=== PATIENT | female | born 1960 | race Caucasian/White ===

== ENCOUNTER → 2017-12-06 | Outpatient (CLI) | payer OTHER ==
--- NOTE | 2017-12-06 12:58 | FL ---
EXAMINATION TYPE: FL barium swallow DATE OF EXAM: 12/06/2017 COMPARISON: NONE HISTORY: Food sticking with solids TECHNIQUE: A double contrast UGI study is performed. FINDINGS: Contrast passes through the esophagus to the stomach without significant hesitancy. There i s during the initial phase of the examination some debris within the distal esophagus which appears t o clear. The gastroesophageal junction opens to normal caliber. There is some mild hesitancy of contr ast passing through the gastroesophageal junction. There is complete stripping of the esophageal bolu s in the horizontal drinking position although some slight hesitancy is again noted at the gastroesop hageal junction Overhead radiographs were obtained which are unremarkable. Images: 33 Fluoroscopy time: 1 minute 33 seconds IMPRESSIONS: 1. There appear to be some debris within the distal esophagus at the initial stage of the examination . This however clears with liquid. 2. Mild hesitancy at the gastroesophageal junction with passage of barium. 3. No suspicious abnormalities identified.
== END | disposition home or self-care (01) ==
LOC: RADFLMAIN 10:43
PROVIDERS: ATTEND Internal Medicine Gastroenterology
DX: R09.89 Other specified symptoms and signs involving the circulatory and respiratory systems (principal)
CPT/HCPCS: 74220

== ENCOUNTER 2023-09-26 13:41 | Observation (INO) | payer MEDICARE, OTHER ==
[2023-09-26] MEDS ORDERED: NITROGLYCERIN SL TABS 0.4 MG TAB SUBLINGUAL PRN ×2 (14:11→15:30)
[2023-09-26] MEDS ORDERED: NALOXONE 0.4 MG/ML 1 ML VIAL IVP PRN (14:11)
[2023-09-26] MEDS ORDERED: ACETAMINOPHEN TAB 325 MG TAB PO PRN (14:11)
[2023-09-26 14:18] VITALS: RESP 18
[2023-09-26] MEDS: HEPARIN SODIUM,PORCINE 5,000 UNIT/ML 1 ML VIAL SQ SCH (15:14)
[2023-09-26] MEDS ORDERED: IPRATROPIUM-ALBUTEROL 3 ML NEB INHALATION PRN (15:27)
--- NOTE | 2023-09-26 15:27 | XR ---
EXAMINATION TYPE: XR chest 1V portable DATE OF EXAM: 09/26/2023 Comparison: None Clinical History: 63-year-old female with chest pain Findings: Diminished lung volumes with elevated hemidiaphragms partially obscuring the heart margins. Prominent streaky areas of density at the lung bases. Upper lungs appear clear. No sizable pleural effusion. Impression: Limited by prominent hypoventilatory changes and strandy bibasilar atelectasis.
--- NOTE | 2023-09-26 15:30 | ED ---
General Adult HPI - General Chief complaint: Chest Pain Stated complaint: Chest Pain, COPD Time Seen by Provider: 09/26/23 13:41 Source: patient, RN notes reviewed, old records reviewed Mode of arrival: EMS Limitations: no limitations - History of Present Illness Initial comments: This is a 63-year-old female who is transferred to us from [facility] I did speak with the Taryn doctor prior to transfer. Patient came in last evening for difficulty breathing and chest pain initial troponin was normal health EKG showed some ST segment depression and according to their mortgage loan closer he wanted the patient be transferred to our facility for a stress test. Patient currently was continuing to have some chest heaviness and some shortness of long ath. Patient denies any fever chills or cough. Patient with any abdominal pain palpitations nausea vomiting diarrhea. - Related Data Allergies Allergy/AdvReac Type Severity Reaction Status Date / Time atorvastatin [From Lipitor] Allergy Unknown Verified 09/26/23 14:19 cephalexin [From Keflex] Allergy Unknown Verified 09/26/23 13:51 erythromycin base Allergy Unknown Verified 09/26/23 13:51 potassium Allergy Unknown Verified 09/26/23 13:51 vitamin A Allergy Unknown Verified 09/26/23 13:51 Review of Systems ROS Statement: Those systems with pertinent positive or pertinent negative responses have been documented in the HPI. ROS Other: All systems not noted in ROS Statement are negative. Past Medical History Past Medical History: Asthma, COPD Additional Past Medical History / Comment(s): vertigo, sleep apnea Past Surgical History: Hernia Repair Past Psychological History: Depression Smoking Status: Former smoker Past Alcohol Use History: None Reported Past Drug Use History: None Reported General Exam - General Exam Comments Initial Comments: GENERAL: Patient is well-developed and well-nourished. Patient is nontoxic and well- hydrated and is in mild distress. ENT: Neck is soft and supple. No significant lymphadenopathy is noted. Oropharynx is clear. Moist mucous membranes. Neck has full range of motion without eliciting any pain. EYES: The sclera were anicteric and conjunctiva were pink and moist. Extraocular movements were intact and pupils were equal round and reactive to light. Eyelids were unremarkable. PULMONARY: Unlabored respirations. Good breath sounds bilaterally. No audible rales rhonchi or wheezing was noted. CARDIOVASCULAR: Patient is a regular rate at about 100 beats a minute. ABDOMEN: Soft and nontender with normal bowel sounds. SKIN: Skin is clear with no lesions or rashes and otherwise unremarkable. NEUROLOGIC: Patient is alert and oriented x3. Cranial nerves II through XII are grossly intact. Motor and sensory are also intact. Normal speech, volume and content. Symmetrical smile. MUSCULOSKELETAL: Normal extremities with adequate strength and full range of motion. LYMPHATICS: No significant lymphadenopathy is noted PSYCHIATRIC: Normal psychiatric evaluation. Limitations: no limitations Course Vital Signs 09/26/23 09/26/23 14:14 15:16 Temperature 99.9 F H Pulse Rate 109 H 106 H Respiratory 18 18 Rate Blood Pressure 138/82 130/82 O2 Sat by Pulse 96 97 Oximetry Medical Decision Making - Medical Decision Making EKG is interpreted by myself. EKG shows a sinus tachycardia at 104 bpm NH interval 602 QT interval 374 QTC is 435. Patient's EKG shows ST segment depression in leads V2 through V6. Was pt. sent in by a medical professional or institution (, PA, SQUEEGEE TENDER, urgent care, hospital, or [place] health [place] facility...) When possible be specific @ -[facility] transfer the patient to us Did you speak to anyone other than the patient for history (EMS, parent, family, police, friend...)? What history was obtained from this source @ -I spoke with the physician at [facility] prior to transfer Did you review nursing and triage notes (agree or disagree)? Why? @ -I reviewed and agree with nursing and triage notes Were old charts reviewed (outside hosp., previous admission, EMS record, old EKG, old radiological studies, urgent care reports/EKG's, [place] health care facility records)? Report findings @ -I reviewed the old chart and old lab work that the patient was sent with Differential Diagnosis (chest pain, altered mental status, abdominal pain women, abdominal pain men, vaginal bleeding, weakness, fever, dyspnea, syncope, headache, dizziness, GI bleed, back pain, seizure, CVA, palpatations, mental health, musculoskeletal)? @ -Differential Chest Pain: Stable Angina, Unstable Angina, STEMI, NSTEMI Aortic Dissection, Pneumothorax, Musculoskeletal, Esophageal Spasm GERD, Cholecystitis, Pancreatitis, Zoster, this is not meant to be an all-inclusive list. EKG interpreted by me (3pts min.). @ -As above X-rays interpreted by me (1pt min.). @ -None done CT interpreted by me (1pt min.). @ -None done U/S interpreted by me (1pt. min.). @ -None done What testing was considered but not performed or refused? (CT, X-rays, U/S, labs)? Why? @ -None What meds were considered but not given or refused? Why? @ -None Did you discuss the management of the patient with other professionals (professionals i.e. DrNeal, PA, SQUEEGEE TENDER, lab, RT, psych nurse, oncology social work, master control supervisor, teacher, parole hearing officer, case assembler)? Give summary @ -I spoke with Dr. Lilly he agreed to admit the patient to the patient wrote admitting orders Was smoking cessation discussed for >3mins.? @ -No Was critical care preformed (if so, how long)? @ -No Were there social determinants of health that impacted care today? How? (Homelessness, low income, unemployed, alcoholism, drug addiction, transportation, low edu. Level, literacy, decrease access to med. care, skilled nursing, rehab)? @ -No Was there de-escalation of care discussed even if they declined (Discuss DNR or withdrawal of care, Hospice)? DNR status @ -No What co-morbidities impacted this encounter? (DM, HTN, Smoking, COPD, CAD, Cancer, CVA, ARF, Chemo, Hep., AIDS, mental health diagnosis, sleep apnea, morbid obesity)? @ -None Was patient admitted / discharged? Hospital course, mention meds given and route, prescriptions, significant lab abnormalities, going to OR and other pertinent info. @ -Patient has slight abnormality and EKG was some ST segment depression however have no old EKG to compare to. Patient's troponins were negative. I spoke with Dr. Lilly he agreed to admit the patient admitted the patient I wrote admitting orders I consulted cardiology Undiagnosed new problem with uncertain prognosis? @ -No Drug Therapy requiring intensive monitoring for toxicity (Heparin, Nitro, Insulin, Cardizem)? @ -No Were any procedures done? @ -No Diagnosis/symptom? @ -Chest pain Acute, or Chronic, or Acute on Chronic? @ -Acute Uncomplicated (without systemic symptoms) or Complicated (systemic symptoms)? @ -Complicated Side effects of treatment? @ -No Exacerbation, Progression, or Severe Exacerbation? @ -No Poses a threat to life or bodily function? How? (Chest pain, USA, SC, pneumonia, PE, COPD, DKA, ARF, appy, cholecystitis, CVA, Diverticulitis, Homicidal, Suicidal, threat to staff... and all critical care pts) @ -Yes this could lead to an MRI which could lead to end organ dysfunction - Lab Data Lab Results 09/26/23 Range/Units 14:03 Troponin I <0.012 (0.000-0.034) ng/mL Disposition Clinical Impression: Chest pain Disposition: ADMITTED IP TO THIS HOSP Referrals: Terell Jeronimo MD [Primary Care Provider] - 1-2 days Time of Disposition: 15:30
--- NOTE | 2023-09-26 15:32 | P.HPIM ---
History of Present Illness H&P Date: 09/26/23 History of Presenting Illness: Patient is a very pleasant 63-year-old female with a past medical history of asthma, COPD, hyperlipidemia, and depression. She presented to the hospital as a transfer from [facility] for further evaluation of chest pain. Patient reports she was just getting to work this morning when she suddenly felt pain/pressure to her midsternal chest accompanied by shortness of breath. Patient reports he felt as though something was pushing on her chest and she could not catch her breath. She states she was not sure if she was having a COPD exacerbation or what was going on. She reports she called her son who then took her to [facility] for evaluation. Patient denies experiencing any fevers, chills, diaphoresis, headache, lightheadedness, dizziness, palpitations, cough or congestion, abdominal pain, or experiencing any numbness/tingling/weakness/swelling in her extremities. She does report feeling nauseous during this event but denies any episodes of vomiting. Patient reports chest pain/pressure lasted approximately 15 minutes prior to resolving spontaneously without any intervention. She underwent evaluation at [facility]. EKG was completed upon arrival to our facility showing sinus mechanism at 99 bpm. Labs were completed and reviewed. CBC showing WBC count of 7.51, hemoglobin 12.1, and platelet count of 265. BMP unremarkable with sodium 138, potassium 3.5, BUN 14.1, creatinine 0.89, and GFR 68.31. Coagulation profile normal findings. Liver profile showing no abnormalities. CPK was slightly elevated at 149. Troponin was negative at less than 0.012 and repeat troponin also negative at less than 0.012. Respiratory viral testing was negative showing no detection of any viruses including influenza, adenovirus, coronavirus, rhinovirus, enterovirus, parainfluenza, RSV, parapertussis, pertussis, M. pneumonia and C. pneumoniae. Per transfer documentation patient did undergo a negative CTA of her chest for pulmonary emboli, imaging disc/radiology report was not sent with patient upon transfer. Patient was transferred from [facility] to our facility for further evaluation of her chest pain and concerns of mild ST depression reported in anterior leads on her EKG. Patient admitted under our services with consultation to cardiology. Review of systems: Pertinent positives and negatives as discussed in HPI, a complete review of systems was performed and all other systems are negative. Physical exam: Vital signs reviewed and stable. General: Nontoxic, no distress and appears stated age. Derm: Skin warm and dry, normal coloration for ethnicity. Head: Atraumatic, normocephalic and symmetric. Eyes: EOMs intact, no lid lag, and anicteric sclera Mouth: no lip lesions, mucus membranes moist Cardiovascular: regular rate and rhythm with normal S1S2, no murmur, positive posterior tibial pulses bilaterally, and cap refill < 2 seconds. Lungs: Respirations even, regular, and unlabored on room air. Lungs CTA bilaterally, no rhonchi, no rales, no wheezing, and no accessory muscle usage. Abdominal: soft, nontender to palpation, no guarding, no appreciable organomegaly Ext: ROM intact. No gross muscle atrophy, no edema, no contractures Neuro: Speech clear, face symmetrical and CN II-XII grossly intact with no noted focal neuro deficits Psych: Alert and oriented to person, place, time, and situation. Appropriate and pleasant affect. Assessment and Plan of Care: Chest pain and shortness of breath, rule out acute coronary event COPD Elevated CPK Normocytic anemia -Cardiology consulted, appreciate further recommendations -Telemetry monitoring -Trend troponins -Cardiac diet, nothing by mouth after midnight. -Aspirin and atorvastatin -Lipid profile and hemoglobin A1c and with a.m. labs. -Echocardiogram -CTA of her chest for pulmonary emboli, imaging disc/radiology report was not sent with patient upon transfer. We will send for copy of imaging report/disc. -Order placed for chest x-ray. -Order placed for duo nebs every 2 hours as needed for wheezing/shortness of breath. Data and imaging reviewed: As stated above in HPI. The patient is admitted with an anticipated greater than 2 midnight stay for evaluation of chest pain CODE STATUS:full code DVT prophylaxis: Heparin Anticipated discharge date: 24-[address]: Home Patient was seen independently by Nurse Practitioner. This document was prepared using [employer] dictation software. Please allow for errors in screedman/laborer while rare they do occur. I reviewed the documentation as provided by the RANGEL above, who is the original author of this note. I agree with the documented assessment and plan, with the following changes: none Past Medical History Past Medical History: Asthma, COPD Additional Past Medical History / Comment(s): vertigo, sleep apnea Past Surgical History: Hernia Repair Past Psychological History: Depression Smoking Status: Former smoker Past Alcohol Use History: None Reported Past Drug Use History: None Reported Medications and Allergies Allergies Allergy/AdvReac Type Severity Reaction Status Date / Time atorvastatin [From Lipitor] Allergy Back & leg Verified 09/26/23 15:28 pain cephalexin [From Keflex] Allergy Rash/Hives Verified 09/26/23 15:28 erythromycin base Allergy Rash/Hives Verified 09/26/23 15:28 potassium AdvReac Muscle Verified 09/26/23 15:28 aches vitamin A AdvReac Nausea & Verified 09/26/23 15:28 Vomiting aspirin 325mg AdvReac Nausea & Uncoded 09/26/23 15:28 Vomiting Physical Exam Osteopathic Statement: *. No significant issues noted on an osteopathic structural exam other than those noted in the History and Physical/Consult. Vitals: Vital Signs Temp Pulse Resp BP Pulse Ox 09/26/23 14:14 99.9 F H 109 H 18 138/82 96 Intake and Output 09/25/23 09/26/23 09/26/23 22:59 06:59 14:59 Other: Weight 68.039 kg
[2023-09-26 17:12] LABS: Basophils % (A) 0 %; Eosinophils % (A) 0 %; HCT 37.7 % (34.0-46.0); HGB 12.5 gm/dL (11.4-16.0); Lymphocytes % (A) 11 %; MCH 28.5 pg (25.0-35.0); MCHC 33.1 g/dL (31.0-37.0); MCV 86.2 fL (80.0-100.0); Mean Platelet Volume 8.8; Monocytes # (A) 0.2 k/uL (0-1.0); Monocytes % (A) 2 %; Neutrophils # (A) 8.1 k/uL (1.3-7.7); Neutrophils % (A) 87 %; Platelet Count 290 k/uL (150-450); RBC 4.37 m/uL (3.80-5.40); RDW 13.9 % (11.5-15.5); WBC 9.3 k/uL (3.8-10.6)
[2023-09-26] MEDS ORDERED: NON FORMULARY DRUG (Albuterol Inhaler 90 MCG Puff) INHALATION PRN (17:36)
[2023-09-26 17:41] LABS: ALT 50 U/L (4-34); AST 29 U/L (14-36); African American GFR (CKD) 84 (>60 ml/min/1.73 sqM); Albumin 4.3 g/dL (3.5-5.0); Alkaline Phosphatase 93 U/L (38-126); Anion Gap 11 mmol/L; Blood Urea Nitrogen 14 mg/dL (7-17); Calcium 9.6 mg/dL (8.4-10.2); Carbon Dioxide 22 mmol/L (22-30); Chloride 109 mmol/L (98-107); Glucose 152 mg/dL (74-99); Non-African American GFR(CKD) 73 (>60 ml/min/1.73 sqM); Potassium 3.6 mmol/L (3.5-5.1); Sodium 142 mmol/L (137-145); Total Bilirubin 0.4 mg/dL (0.2-1.3); Total Protein 7.4 g/dL (6.3-8.2)
[2023-09-26] MEDS: SYMBICORT 160-4.5 MCG INHALER INHALATION SCH (19:55)
[2023-09-26] MEDS: busPIRone HCl 5 MG TAB PO SCH (20:33)
[2023-09-26] MEDS: DULoxetine HCL 30 MG CAPSULE.DR PO SCH (20:33)
--- NOTE | 2023-09-26 20:44 | P.HPIM ---
History of Present Illness H&P Date: 09/26/23 Chief Complaint: Chest pressure This is a 63-year-old patient, follows with Enrique Butcher NP who follows with Dr. Jeronimo. Chronic stable medical conditions include depression, GERD, hyperlipidemia, asthma. This morning around 8:00 patient developed chest pain right at the middle of the chest. Was finding it difficult to breathe. Broke out in a sweat. Nausea. No prior cardiac history. Denies any fever and chills. Presented to [facility]. Troponin x 2 was negative. EKG showed some ST segment changes depression. Sent here for cardiac evaluation. Patient is found to have bedbugs at [facility] and was transferred down here. Patient was taken to the decontamination room. Patient pressure since then has improved. Review of systems: GEN.: Tired EYES: [None] HEENT: [None] NECK: [None] RESPIRATORY: [As above e] CARDIOVASCULAR: [As above e] GASTROINTESTINAL: [None] GENITOURINARY: [None] MUSCULOSKELETAL: [N some joint pains e] LYMPHATICS: [None] HEMATOLOGICAL: [None] PSYCHIATRY: [None] NEUROLOGICAL: [None] Social history: Patient's son lives with her. No smoking or alcohol. Physical examination: VITAL SIGNS: 99.9, 109, 18, 138/82, 96% room air GENERAL: [BMI 28.3, sitting in bed awake slightly anxious]. EYES: [Pupils equal. Conjunctiva alexandria]l. HEENT: [External appearance of nose and ears normal, oral cavity grossly normal]. NECK: [JVD not raised; masses not palpable]. HEART: [First and second heart sounds are normal; no edema]. LUNGS:[ Respiratory rate normal; clear to auscultation]. ABDOMEN: [Soft, nontender, liver spleen not palpable, no masses palpable]. PSYCH: [Alert and oriented x3; mood and affect alexandria]l. MUSCULOSKELETAL:No Clubbing/cyanosis;muscles-grossly intact NEUROLOGICAL: [Cranial nerves grossly intact; no facial asymmetry, power and sensation grossly intact]. LYMPHATICS: [No lymph nodes palpable in the axilla and neck] INVESTIGATIONS, reviewed in the clinical context: Chest x-ray film personally reviewed by me-some hyperinflation EKG tracing personally reviewed by me shows-some LVH. With some ST segment depression in anterolateral leads. From [facility] shows: White count 7.5 hemoglobin 12.1 platelets 265 sodium 138 potassium 3.5 phosphorus 1.8 troponin I less than 0.0122. ProBNP less than 20. EKG tracing personally reviewed by me-some ST segment depression in anterolatera l leads. Patient negative for COVID 19, influenza type A B, RSV: Assessment and plan: -Patient presents with anterior chest wall pain. With cardiac features. Some EKG changes. Also short of breath. Unstable angina. Rule out PE. CT angio PE protocol rule out PE. Consult cardiology. -Possible PE Stat CT angio chest -Depression Cymbalta 30 mg twice daily BuSpar 5 mg twice daily -GERD PPI -Hyperlipidemia Pravachol 20 mg a day -Moderate persistent asthma Symbicort 2 puff twice daily albuterol as needed Singulair. Past Medical History Past Medical History: Asthma, COPD Additional Past Medical History / Comment(s): vertigo, sleep apnea Past Surgical History: Hernia Repair Past Psychological History: Depression Smoking Status: Former smoker Past Alcohol Use History: None Reported Past Drug Use History: None Reported Medications and Allergies Home Medications Medication Instructions Recorded Confirmed Type Albuterol Inhaler [Ventolin Hfa 2 puff INHALATION RT-Q4H PRN 09/26/23 09/26/23 History Inhaler] Aspirin EC [Ecotrin Low Dose] 81 mg PO DAILY 09/26/23 09/26/23 History Budesonide/Formoterol Fumarate 2 puff INHALATION RT-BID 09/26/23 09/26/23 History [Symbicort 160-4.5 Mcg Inhaler] Cyanocobalamin [Vitamin B-12] 500 mcg PO DAILY 09/26/23 09/26/23 History DULoxetine HCL [Cymbalta] 30 mg PO BID 09/26/23 09/26/23 History Ergocalciferol [Vitamin D2 (1250 1,250 mcg PO WEEKLY 09/26/23 09/26/23 History Mcg = 79045 Iu)] Famotidine 20 mg PO DAILY 09/26/23 09/26/23 History Loratadine [Claritin] 10 mg PO DAILY 09/26/23 09/26/23 History Meclizine [Antivert] 25 mg PO DAILY PRN 09/26/23 09/26/23 History Montelukast [Singulair] 10 mg PO HS 09/26/23 09/26/23 History Nortriptyline [Pamelor] 50 mg PO HS 09/26/23 09/26/23 History Omeprazole [PriLOSEC] 20 mg PO BID 09/26/23 09/26/23 History Pravastatin Sodium [Pravachol] 20 mg PO DAILY 09/26/23 09/26/23 History Triamcinolone 0.1% Cream [Kenalog 1 applic TOPICAL BID 09/26/23 09/26/23 History 0.1% Cream] busPIRone HCl [Buspar] 5 mg PO BID 09/26/23 09/26/23 History hydrOXYzine HCL [Atarax] 10 mg PO HS 09/26/23 09/26/23 History Allergies Allergy/AdvReac Type Severity Reaction Status Date / Time atorvastatin [From Lipitor] Allergy Back & leg Verified 09/26/23 15:28 pain cephalexin [From Keflex] Allergy Rash/Hives Verified 09/26/23 15:28 erythromycin base Allergy Rash/Hives Verified 09/26/23 15:28 potassium AdvReac Muscle Verified 09/26/23 15:28 aches vitamin A AdvReac Nausea & Verified 09/26/23 15:28 Vomiting aspirin 325mg AdvReac Nausea & Uncoded 09/26/23 15:28 Vomiting Physical Exam Vitals: Vital Signs Temp Pulse Resp BP Pulse Ox 09/26/23 17:25 102 H 18 126/86 95 09/26/23 15:16 106 H 18 130/82 97 09/26/23 14:14 99.9 F H 109 H 18 138/82 96 Intake and Output 09/26/23 09/26/23 09/26/23 06:59 14:59 22:59 Other: Weight 68.039 kg Results CBC & Chem 7: 09/26/23 16:43 09/26/23 16:43 Labs: Abnormal Lab Results - Last 24 Hours (Table) 09/26/23 09/26/23 Range/Units 16:43 16:43 Neutrophils # 8.1 H (1.3-7.7) k/uL Chloride 109 H (98-107) mmol/L Glucose 152 H (74-99) mg/dL ALT 50 H (4-34) U/L
[2023-09-26] MEDS ORDERED: PRAVASTATIN SODIUM 40 MG TAB PO SCH (21:00)
[2023-09-26] MEDS ORDERED: MONTELUKAST 10 MG TAB PO SCH (21:00)
[2023-09-26] MEDS ORDERED: NORTRIPTYLINE 25 MG CAP PO SCH (21:00)
[2023-09-26] MEDS ORDERED: hydrOXYzine HCL 10 MG TAB PO SCH (21:00)
[2023-09-26] MEDS: TRIAMCINOLONE 0.1% CREAM 80 GM TUBE TOPICAL SCH (21:00)
--- NOTE | 2023-09-26 21:01 | CT ---
EXAMINATION TYPE: CT angio chest DATE OF EXAM: 09/26/2023 8:52 PM COMPARISON: None HISTORY: R/O PE. CT DLP: 321 mGycm Automated exposure control for dose reduction was used. CONTRAST: CTA scan of the thorax is performed with IV Contrast, patient injected with 100 ml mL of Isovue 370, pulmonary embolism protocol. . FINDINGS: There is a 5.4 mm pulmonary nodule in the left upper lobe. There is a thick bandlike interstitial opacity in the bilateral lung bases, right greater than left, consistent with coarse interstitial fibrosis with traction bronchiectasis. There is no pleural effus ion or pneumothorax. The great vessels are normal and there is no mediastinal, hilar or axillary adenopathy. There are no filling defects within the pulmonary arteries are segmental branches. Limited scanning of the upper abdomen reveals gallstones and a large simple cortical cyst of the left kidney. No focal osseous lesions are seen. IMPRESSION: 1. No evidence of pulmonary embolism. 2. Coarse interstitial scarring and traction bronchiectasis in the lower lobes bilaterally, right gre ater than left. 3. 5.4 mm pulmonary nodule. This is a high-risk patient and routine screening yearly intervals is rec ommended. Lung category 2 benign finding 4. Cholelithiasis
[2023-09-27] MEDS: HEPARIN SODIUM,PORCINE 5,000 UNIT/ML 1 ML VIAL SQ SCH ×2 (00:17→08:48)
[2023-09-27 04:40] VITALS: TEMP 99.1
[2023-09-27 07:01] LABS: Basophils % (A) 0 %; Eosinophils # (A) 0.1 k/uL (0-0.7); Eosinophils % (A) 0 %; HCT 38.2 % (34.0-46.0); HGB 12.4 gm/dL (11.4-16.0); Hypochromasia Slight; Lymphocytes # (A) 2.1 k/uL (1.0-4.8); Lymphocytes % (A) 12 %; MCH 28.9 pg (25.0-35.0); MCHC 32.6 g/dL (31.0-37.0); MCV 88.6 fL (80.0-100.0); Mean Platelet Volume 8.4; Monocytes # (A) 0.7 k/uL (0-1.0); Monocytes % (A) 4 %; Neutrophils # (A) 13.8 k/uL (1.3-7.7); Neutrophils % (A) 81 %; Platelet Count 306 k/uL (150-450); RBC 4.31 m/uL (3.80-5.40); RDW 14.2 % (11.5-15.5); WBC 17.1 k/uL (3.8-10.6)
[2023-09-27] MEDS ORDERED: PANTOPRAZOLE 40 MG TABLET PO SCH (07:30)
[2023-09-27] MEDS: SYMBICORT 160-4.5 MCG INHALER INHALATION SCH (07:35)
[2023-09-27] MEDS: DULoxetine HCL 30 MG CAPSULE.DR PO SCH (08:48)
[2023-09-27] MEDS: TRIAMCINOLONE 0.1% CREAM 80 GM TUBE TOPICAL SCH (08:48)
[2023-09-27] MEDS: busPIRone HCl 5 MG TAB PO SCH (08:48)
[2023-09-27] MEDS ORDERED: ASPIRIN 325 MG TAB PO SCH (09:00)
[2023-09-27] MEDS ORDERED: PRAVASTATIN SODIUM 20 MG TAB PO SCH (09:00)
[2023-09-27] MEDS ORDERED: FAMOTIDINE 20 MG TAB PO SCH (09:00)
[2023-09-27] MEDS ORDERED: CYANOCOBALAMIN 500 MCG TAB PO SCH (09:00)
[2023-09-27] MEDS ORDERED: ASPIRIN 81 MG PO SCH (09:00)
--- NOTE | 2023-09-27 12:09 | CA ---
Transthoracic Echo Report Name: Kathleen Kay Age: 63 Gender: F : 1960 Exam Date: 09/26/2023 16:07 Exam Location: [facility] Ht (in): 61 Wt (lb): 150 Ordering Physician: Samantha Dinh MD Attending/Referring Phys: Director Of Graduate Admissions Susana Villela RDCS Procedure CPT: Indications: Chest Pain Cardiac Hx: Technical Quality: Good Contrast 1: Total Dose (mL): Contrast 2: Total Dose (mL): MEASUREMENTS (Male / Female) Normal Values 2D ECHO LV Diastolic Diameter PLAX 4.0 cm 4.2 - 5.9 / 3.9 - 5.3 cm LV Systolic Diameter PLAX 2.6 cm IVS Diastolic Thickness 1.0 cm 0.6 - 1.0 / 0.6 - 0.9 cm LVPW Diastolic Thickness 0.8 cm 0.6 - 1.0 / 0.6 - 0.9 cm LV Relative Wall Thickness 0.5 RV Internal Dim ED PLAX 2.7 cm LA Systolic Diameter LX 3.0 cm 3.0 - 4.0 / 2.7 - 3.8 cm LV Diastolic Volume MOD 4C 88.8 cm??? LV Systolic Volume MOD 4C 39.3 cm??? LV Ejection Fraction MOD 4C 55.7 % LV Cardiac Index MOD 4C 2886.2 cm???/min???m??? LV Diastolic Length 4C 8.4 cm LV Systolic Length 4C 6.6 cm LV Diastolic Volume MOD 2C 55.3 cm??? LV Systolic Volume MOD 2C 21.1 cm??? LV Ejection Fraction MOD 2C 61.9 % LV Cardiac Index MOD 2C 1994.0 cm???/min???m??? LV Diastolic Length 2C 8.1 cm LV Systolic Length 2C 6.1 cm LA Volume 34.8 cm??? 18 - 58 / 22 - 52 cm??? LA Volume Index 20.1 cm???/m??? 16 - 28 cm???/m??? M-MODE Aortic Root Diameter MM 3.3 cm MV E Point Septal Separation 0.7 cm AV Cusp Separation MM 1.9 cm DOPPLER AV Peak Velocity 133.8 cm/s AV Peak Gradient 7.2 mmHg MV Area PHT 6.3 cm??? Mitral E Point Velocity 61.5 cm/s Mitral A Point Velocity 96.6 cm/s Mitral E to A Ratio 0.6 MV Deceleration Time 119.7 ms MV E' Velocity 7.6 cm/s Mitral E to MV E' Ratio 8.1 TR Peak Velocity 209.6 cm/s TR Peak Gradient 17.6 mmHg Right Ventricular Systolic Press 22.5 mmHg FINDINGS Left Ventricle Left ventricular ejection fraction is estimated at 60-65 %. Left ventricular cavity size normal. Left ventricular wall thickness normal. Right Ventricle Normal right ventricular size. Right ventricular systolic pressure within normal limits. Right Atrium Normal right atrial size. Left Atrium Normal left atrial size. Mitral Valve Structurally normal mitral valve. No mitral stenosis, regurgitation or prolapse. Aortic Valve Trileaflet aortic valve. No aortic valve stenosis or regurgitation. Tricuspid Valve Structurally normal tricuspid valve. Mild tricuspid regurgitation. Pulmonic Valve Structurally normal pulmonic valve. No pulmonic regurgitation. Pericardium No pericardial effusion. Aorta Normal size aortic root and proximal ascending aorta. CONCLUSIONS Normal LV systolic function Previewed by: Dr. Christian Granado MD (Electronically Signed) Final Date: 27 September 2023 12:08
--- NOTE | 2023-09-27 12:13 | P.CRDCN ---
History of Present Illness Consult date: 09/27/23 Consult reason: chest pain History of present illness: History of present illness: This is a 63-year-old female patient with no previous cardiac history, does not follow with a glass tinter and no previous cardiac workup. She has a past medical history of asthma COPD, hyperlipidemia. Patient has been a non-smoker. She has a family history of brother dying at age 62 from myocardial infarction. We have been asked to evaluate the patient for chest pain. Patient states that she had chest pain that she is never had before. She thought she was having an asthma attack and developed chest pain with it in the midsternal area what that was nonradiating. Pain is gone now. She feels her asthma is stable with no shortness of breath. EKG sinus rhythm 104 bpm Chest x-ray: Limited by prominent hypoventilatory changes and strandy bibasilar atelectasis. CTA of the chest no evidence of pulmonary embolism. Coarse interstitial scarring and traction bronchitis in the lower lobes bilaterally, right greater than left. 5.4 mm pulmonary nodule. High risk patient and routine screening yearly intervals is recommended. Cholelithiasis. Echocardiogram reveals normal LV systolic function. WBC initially 9.3 with repeat of 17.1, hemoglobin 12.4. Platelet count 306. Sodium 142, potassium 3.6, chloride 109, CO2 22, BUN 14 creatinine 0.86. Trop onin negative x 3. TSH 0.579. ALT 50, glucose 152. Home cardiac medications: Aspirin 81 mg daily, pravastatin 20 mg daily Review Of Systems: At the time of my evaluation: Constitutional: No fever, no chills. No weakness, fatigue or lethargy. EENT: No headache. No dizziness. Lungs: No shortness of breath, cough, no sputum production. No wheezing. Cardiovascular: No chest pain, no lower extremity edema. No palpitations. No paroxysmal nocturnal dyspnea. No orthopnea. No lightheadedness or dizziness. No syncopal episodes. Abdominal: No abdominal pain. No nausea, vomiting. No diarrhea. No constipation. No bloody or tarry stools. Genitourinary: No dysuria.. No urinary retention. Musculoskeletal: No myalgias. No muscle weakness, no frequent falls. No back pain. No neck pain. Integumentary: No wounds. No rash. No unusual bruising. Neurologic: No aphasia. No facial droop. No change in mentation. No head injury. No headache. Physical examination: Gen: This is a 63-year-old female. She appears to be in no acute distress. VS: reviewed blood pressure 138/79, heart rate 86, pulse ox 96% on room air, afebrile. HEENT: Head is atraumatic, normocephalic. Pupils equal, round. Sclerae is anicteric. NECK: Supple. No JVD. . LUNGS: Clear to auscultation. No wheezes or rhonchi. No intercostal retractions. HEART: Regular rate and rhythm. No murmur. ABDOMEN: Soft No tenderness. EXTREMITIES: No pedal edema. No calf tenderness. NEUROLOGICAL: Patient is awake, alert and oriented x3. Assessment: Atypical chest pain, acute coronary syndrome ruled out Asthma COPD Hyperlipidemia Pulmonary nodule on CAT scan with recommendations for routine screening, follow- up with PCP Plan: Resume patient's home cardiac medications Obtain stress echocardiogram. If stress echocardiogram is unremarkable, patient is cleared for discharge from cardiology. Thank you kindly for this consultation. Nurse practitioner note has been reviewed, I agree with documented findings and plan of care. Patient was seen and examined. Past Medical History Past Medical History: Asthma, COPD Additional Past Medical History / Comment(s): vertigo, sleep apnea Past Surgical History: Hernia Repair Past Psychological History: Depression Smoking Status: Former smoker Past Alcohol Use History: None Reported Past Drug Use History: None Reported Medications and Allergies Home Medications Medication Instructions Recorded Confirmed Type Albuterol Inhaler [Ventolin Hfa 2 puff INHALATION RT-Q4H PRN 09/26/23 09/26/23 History Inhaler] Aspirin EC [Ecotrin Low Dose] 81 mg PO DAILY 09/26/23 09/26/23 History Budesonide/Formoterol Fumarate 2 puff INHALATION RT-BID 09/26/23 09/26/23 History [Symbicort 160-4.5 Mcg Inhaler] Cyanocobalamin [Vitamin B-12] 500 mcg PO DAILY 09/26/23 09/26/23 History DULoxetine HCL [Cymbalta] 30 mg PO BID 09/26/23 09/26/23 History Ergocalciferol [Vitamin D2 (1250 1,250 mcg PO WEEKLY 09/26/23 09/26/23 History Mcg = 08993 Iu)] Famotidine 20 mg PO DAILY 09/26/23 09/26/23 History Loratadine [Claritin] 10 mg PO DAILY 09/26/23 09/26/23 History Meclizine [Antivert] 25 mg PO DAILY PRN 09/26/23 09/26/23 History Montelukast [Singulair] 10 mg PO HS 09/26/23 09/26/23 History Nortriptyline [Pamelor] 50 mg PO HS 09/26/23 09/26/23 History Omeprazole [PriLOSEC] 20 mg PO BID 09/26/23 09/26/23 History Pravastatin Sodium [Pravachol] 20 mg PO DAILY 09/26/23 09/26/23 History Triamcinolone 0.1% Cream [Kenalog 1 applic TOPICAL BID 09/26/23 09/26/23 History 0.1% Cream] busPIRone HCl [Buspar] 5 mg PO BID 09/26/23 09/26/23 History hydrOXYzine HCL [Atarax] 10 mg PO HS 09/26/23 09/26/23 History Allergies Allergy/AdvReac Type Severity Reaction Status Date / Time atorvastatin [From Lipitor] Allergy Back & leg Verified 09/26/23 15:28 pain cephalexin [From Keflex] Allergy Rash/Hives Verified 09/26/23 15:28 erythromycin base Allergy Rash/Hives Verified 09/26/23 15:28 potassium AdvReac Muscle Verified 09/26/23 15:28 aches vitamin A AdvReac Nausea & Verified 09/26/23 15:28 Vomiting aspirin 325mg AdvReac Nausea & Uncoded 09/26/23 15:28 Vomiting Physical Exam Vitals: Vital Signs Temp Pulse Resp BP Pulse Ox 09/27/23 07:32 96 18 138/79 96 09/27/23 06:00 86 18 130/77 98 09/27/23 02:00 99.1 F 96 18 103/62 95 09/26/23 20:00 103 H 18 129/83 100 09/26/23 17:25 102 H 18 126/86 95 09/26/23 15:16 106 H 18 130/82 97 09/26/23 14:14 99.9 F H 109 H 18 138/82 96 Results 09/27/23 06:45 09/26/23 16:43 Cardiac Enzymes 09/26/23 09/26/23 09/26/23 Range/Units 14:03 16:43 16:43 AST 29 (14-36) U/L Troponin I <0.012 <0.012 (0.000-0.034) ng/mL 09/26/23 Range/Units 19:51 AST (14-36) U/L Troponin I <0.012 (0.000-0.034) ng/mL CBC 09/26/23 09/27/23 Range/Units 16:43 06:45 WBC 9.3 17.1 H (3.8-10.6) k/uL RBC 4.37 4.31 (3.80-5.40) m/uL Hgb 12.5 12.4 (11.4-16.0) gm/dL Hct 37.7 38.2 (34.0-46.0) % Plt Count 290 306 (150-450) k/uL Comprehensive Metabolic Panel 09/26/23 Range/Units 16:43 Sodium 142 (137-145) mmol/L Potassium 3.6 (3.5-5.1) mmol/L Chloride 109 H (98-107) mmol/L Carbon Dioxide 22 (22-30) mmol/L BUN 14 (7-17) mg/dL Creatinine 0.86 (0.52-1.04) mg/dL Glucose 152 H (74-99) mg/dL Calcium 9.6 (8.4-10.2) mg/dL AST 29 (14-36) U/L ALT 50 H (4-34) U/L Alkaline Phosphatase 93 (38-126) U/L Total Protein 7.4 (6.3-8.2) g/dL Albumin 4.3 (3.5-5.0) g/dL Current Medications Generic Name Dose Route Start Last Admin Trade Name Freq PRN Reason Stop Dose Admin Acetaminophen 650 mg 09/26/23 14:11 Acetaminophen Tab 325 Mg Tab PO Q6HR PRN Mild Pain or Fever > 100.5 Albuterol/Ipratropium 3 ml 09/26/23 15:27 Ipratropium-Albuterol 3 Ml Neb INHALATION Q2H PRN Shortness Of Breath Or Wheezing Aspirin 325 mg 09/27/23 09:00 Aspirin 325 Mg Tab PO DAILY SULMA Budesonide/Formoterol Fumarate 2 puff 09/26/23 20:00 09/27/23 07:35 Symbicort 160-4.5 Mcg Inhaler INHALATION 2 puff RT-BID SULMA Administration Buspirone HCl 5 mg 09/26/23 21:00 09/26/23 20:33 Buspirone Hcl 5 Mg Tab PO 5 mg BID SULMA Administration Cyanocobalamin 500 mcg 09/27/23 09:00 Cyanocobalamin 500 Mcg Tab PO DAILY SULMA Duloxetine HCl 30 mg 09/26/23 21:00 09/26/23 20:33 Duloxetine Hcl 30 Mg Capsule.Dr PO 30 mg BID SULMA Administration Famotidine 20 mg 09/27/23 09:00 Famotidine 20 Mg Tab PO DAILY [facility] Heparin Sodium (Porcine) 5,000 unit 09/26/23 16:00 09/27/23 00:17 Heparin Sodium,Porcine 5,000 Unit/Ml 1 Ml Vial SQ 5,000 unit Q8HR [facility] Administration Hydroxyzine HCl 10 mg 09/26/23 21:00 09/26/23 20:59 Hydroxyzine Hcl 10 Mg Tab PO 10 mg HS SULMA Administration Montelukast Sodium 10 mg 09/26/23 21:00 09/26/23 20:33 Montelukast 10 Mg Tab PO 10 mg HS [facility] Administration Naloxone HCl 0.2 mg 09/26/23 14:11 Naloxone 0.4 Mg/Ml 1 Ml Vial IVP Q2M PRN Opioid Reversal Nitroglycerin 0.4 mg 09/26/23 14:11 Nitroglycerin Sl Tabs 0.4 Mg Tab SUBLINGUAL Q5M PRN Chest Pain Nortriptyline HCl 50 mg 09/26/23 21:00 09/26/23 20:57 Nortriptyline 25 Mg Cap PO 50 mg HS [facility] Administration Pantoprazole Sodium 40 mg 09/27/23 07:30 Pantoprazole 40 Mg Tablet PO AC-BRKFST [facility] Pravastatin Sodium 20 mg 09/27/23 09:00 Pravastatin Sodium 20 Mg Tab PO DAILY [facility] Triamcinolone Acetonide 1 applic 09/26/23 21:00 09/26/23 21:00 Triamcinolone 0.1% Cream 80 Gm Tube TOPICAL 1 applic BID [facility] Administration Protocol 09/27/23 06:45 09/26/23 16:43
[2023-09-27 13:50] LABS: Chol/HDL Ratio 2.79 Ratio; LDL Cholesterol,Calculated 90.6 mg/dL (0.0-131.0); VLDL Calculation 17.14 mg/dL (5.00-40.00)
--- NOTE | 2023-09-27 13:59 | CA ---
Stress Echo Report Kathleen Kay Age: 63 Gender: F : 1960 Exam Date: 09/27/2023 11:42 Exam Location: [place] [facility] Ht (in): 61 Wt (lb): 150 Ordering Physician: Krystin Hernandez Referring Physician: Mary AREVALO Windsurfing Instructor: Narda Davidson Technologist Barbara Ayers RDCS Procedure CPT: Indication: CP ICD-9 Codes: Rhythm: Patient History: Cardiac Medications: Medications in past 24 hours: Contrast: N/A Stress Results Protocol: Rao Total dose(mL): Exercise Duration (min:sec): 7:[address] Depression (mm): Angina Score: Aaron Score: METS: 7.6 Resting HR: 94 Resting BP: 128 / 60 Peak HR: 134 Peak BP: / Max Predicted HR: 158 85 % Max Predicted HR Target HR: 134 Double Product: Stress Summary: Blood pressure cuff not working with technical error on the ecg during stage 1. BP Response: Reason for Termination: Reached target heart rate or work-load Cardiac Symptoms: no symptoms ECG Analysis Resting ECG: Stress ECG: Arrhythmia: Echo Analysis Resting Echo: Peak Echo Analysis: MEASUREMENTS (Male/Female) Normal Values CONCLUSIONS Good exercise tolerance Mild EKG changes in response to exercise Normal echocardiogram in response to exercise Dr. Christian Granado MD (Electronically Signed) Final Date: 27 September 2023 13:58
[2023-09-27 14:37] VITALS: BP 134/74; PULSE 94
--- NOTE | 2023-09-27 14:46 | P.CNPUL ---
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 She presented here to the emergency room yesterday as a transfer from [facility] with complaints of midsternal chest discomfort and an EKG that showed some ST depression. Chest x-ray was limited by prominent hypoventilatory changes and strandy bibasilar atelectasis. EKG revealed sinus rhythm with mild ST and T wave abnormalities. White count 17.1. Hemoglobin 12.4. Platelets 306. Sodium 142. Potassium 3.6. Bicarb 22. BUN 14. Creatinine 0.86. Glucose 152. Troponins were negative x 3. TSH 0.579. Total cholesterol 168. LDL 91. Echocardiogram revealed a preserved left ventricular systolic function with ejection fraction 60 to 65%. No significant valvular abnormalities. CT angiogram ruled out pulmonary embolism. There is coarse interstitial scarring and traction bronchiectasis in the lower lobes bilaterally right greater than left. There was a noted 5.4 mm rounded pulmonary nodule in the left upper lobe. We are consulted for the same. She is seen in the emergency department. Sitting up in the stretcher. Awake and alert in no acute distress. Denies any shortness of breath, cough or congestion. No hemoptysis. She is maintaining good O2 saturations in the mid 90s on room air. She has been afebrile. Hemodynamically stable. No further chest discomfort. Stress echocardiogram ruled out ischemia. Review of Systems REVIEW OF SYSTEMS: CONSTITUTIONAL: Denies any recent significant weight loss or weight gain. EYES: Denies change in vision. EARS, NOSE, MOUTH, THROAT: Denies headaches, denies sore throat. CARDIOVASCULAR: Positive for midsternal chest pain, no palpitations or syncopal episodes. RESPIRATORY: Denies shortness of breath, cough, congestion or hemoptysis. GASTROINTESTINAL: Denies change in appetite, denies abdominal pain GENITOURINARY: Denies hematuria, denies infections. MUSKULOSKELETAL: Denies pain, denies swelling. INTEGUMENTARY: Denies rash, denies eczema. NEUROLOGICAL: Denies recent memory loss, no recent seizure activity. PSYCHIATRIC: Denies anxiety, denies depression. HEMATOLOGIC/LYMPHATIC: Denies anemia, denies enlarged lymph nodes. Past Medical History Past Medical History: Asthma, COPD Additional Past Medical History / Comment(s): vertigo, sleep apnea Past Surgical History: Hernia Repair Past Psychological History: Depression Smoking Status: Former smoker Past Alcohol Use History: None Reported Past Drug Use History: None Reported Medications and Allergies Home Medications Medication Instructions Recorded Confirmed Type Albuterol Inhaler [Ventolin Hfa 2 puff INHALATION RT-Q4H PRN 09/26/23 09/26/23 History Inhaler] Aspirin EC [Ecotrin Low Dose] 81 mg PO DAILY 09/26/23 09/26/23 History Budesonide/Formoterol Fumarate 2 puff INHALATION RT-BID 09/26/23 09/26/23 History [Symbicort 160-4.5 Mcg Inhaler] Cyanocobalamin [Vitamin B-12] 500 mcg PO DAILY 09/26/23 09/26/23 History DULoxetine HCL [Cymbalta] 30 mg PO BID 09/26/23 09/26/23 History Ergocalciferol [Vitamin D2 (1250 1,250 mcg PO WEEKLY 09/26/23 09/26/23 History Mcg = 95920 Iu)] Famotidine 20 mg PO DAILY 09/26/23 09/26/23 History Loratadine [Claritin] 10 mg PO DAILY 09/26/23 09/26/23 History Meclizine [Antivert] 25 mg PO DAILY PRN 09/26/23 09/26/23 History Montelukast [Singulair] 10 mg PO HS 09/26/23 09/26/23 History Nortriptyline [Pamelor] 50 mg PO HS 09/26/23 09/26/23 History Omeprazole [PriLOSEC] 20 mg PO BID 09/26/23 09/26/23 History Pravastatin Sodium [Pravachol] 20 mg PO DAILY 09/26/23 09/26/23 History Triamcinolone 0.1% Cream [Kenalog 1 applic TOPICAL BID 09/26/23 09/26/23 History 0.1% Cream] busPIRone HCl [Buspar] 5 mg PO BID 09/26/23 09/26/23 History hydrOXYzine HCL [Atarax] 10 mg PO HS 09/26/23 09/26/23 History Allergies Allergy/AdvReac Type Severity Reaction Status Date / Time atorvastatin [From Lipitor] Allergy Back & leg Verified 09/26/23 15:28 pain cephalexin [From Keflex] Allergy Rash/Hives Verified 09/26/23 15:28 erythromycin base Allergy Rash/Hives Verified 09/26/23 15:28 potassium AdvReac Muscle Verified 09/26/23 15:28 aches vitamin A AdvReac Nausea & Verified 09/26/23 15:28 Vomiting aspirin 325mg AdvReac Nausea & Uncoded 09/26/23 15:28 Vomiting Physical Exam Vitals: Vital Signs Temp Pulse Resp BP Pulse Ox 09/27/23 14:31 94 18 134/74 96 09/27/23 10:27 86 18 136/84 96 09/27/23 07:32 96 18 138/79 96 09/27/23 06:00 86 18 130/77 98 09/27/23 02:00 99.1 F 96 18 103/62 95 09/26/23 20:00 103 H 18 129/83 100 09/26/23 17:25 102 H 18 126/86 95 09/26/23 15:16 106 H 18 130/82 97 GENERAL EXAM: Alert, pleasant 63-year-old female, on room air, comfortable in no apparent distress. HEAD: Normocephalic. EYES: Normal reaction of pupils, equal size. NOSE: Clear with pink turbinates. THROAT: No erythema or exudates. NECK: No masses, no JVD. CHEST: No chest wall deformity. LUNGS: Equal air entry with no crackles, wheeze, rhonchi or dullness. CVS: S1 and S2 normal with no audible murmur, regular rhythm. ABDOMEN: No hepatosplenomegaly, normal bowel sounds, no guarding or rigidity. SPINE: No scoliosis or deformity SKIN: No rashes CENTRAL NERVOUS SYSTEM: No focal deficits, tone is normal in all 4 extremities. EXTREMITIES: There is no peripheral edema. No clubbing, no cyanosis. Peripheral pulses are intact. Results - Laboratory Findings CBC and BMP: 09/27/23 06:45 09/26/23 16:43 Abnormal lab findings: Abnormal Labs 09/26/23 09/26/23 09/27/23 16:43 16:43 06:45 WBC Neutrophils # 8.1 H Chloride 109 H Glucose 152 H Hemoglobin A1c 6.1 H ALT 50 H HDL Cholesterol 09/27/23 09/27/23 06:45 06:45 WBC 17.1 H Neutrophils # 13.8 H Chloride Glucose Hemoglobin A1c ALT HDL Cholesterol 60.30 H - Diagnostic Findings Chest x-ray: image reviewed CT scan - chest: image reviewed Assessment and Plan Assessment: Atypical chest pain in a patient found to have no significant ischemia VS stress echocardiogram. Troponins negative x 3 Left upper lobe pulmonary nodule measuring 5.4 mm Bronchiectasis History of mild intermittent chronic bronchial asthma Chronic obstructive pulmonary disease secondary to secondhand smoke Hyperlipidemia History of anxiety/depression Plan: The patient was seen and evaluated Chest x-ray, CT angiogram, echocardiogram, stress echocardiogram, labs and medications reviewed Pulmonary nodule less than 6 mm in a lifelong non-smoker Would recommend follow-up CT scan in 1 year Follow-up with her usual investment executive in the outpatient setting Continue her home Alex Nunez Cleared for discharge from the pulmonary standpoint I have personally seen and examined the patient, performed the documentation and the assessment and plan as written. Number of minutes spent on the visit: 20.
--- NOTE | 2023-09-27 20:03 | P.DS ---
Providers Date of admission: 09/26/23 14:12 Expected date of discharge: 09/27/23 Attending physician: Giancarlo Lilly Consults: 09/26/23 14:11 Consult Physician Routine Consulting Provider: [facility] Consult Reason/Comments: Chest Pain Do you want consulting provider notified?: Yes 09/27/23 12:19 Consult Physician Routine Consulting Provider: Alvaro Laboy Consult Reason/Comments: abnormal CT chest Do you want consulting provider notified?: Yes Primary care physician: Terell Kandace [facility] Course: Chief Complaint: Chest pressure This is a 63-year-old patient, follows with Enrique Butcher NP who follows with Dr. Jeronimo. Chronic stable medical conditions include depression, GERD, hyperlipidemia, asthma. This morning around 8:00 patient developed chest pain right at the middle of the chest. Was finding it difficult to breathe. Broke out in a sweat. Nausea. No prior cardiac history. Denies any fever and chills. Presented to [facility]. Troponin x 2 was negative. EKG showed some ST segment changes depression. Sent here for cardiac evaluation. Patient is found to have bedbugs at [facility] and was transferred down here. Patient was taken to the decontamination room. Patient pressure since then has improved. September 27, 2023: CT chest negative for PE. 2D echocardiogram negative. Pulmonary was consulted. Abnormal CT chest. Nothing further to be done currently. Follow-up outpatient. Patient feels back to her baseline. Social history: Patient's son lives with her. No smoking or alcohol. Physical examination: VITAL SIGNS: 99.1, 94, 18, 134/74, 96% room air GENERAL: Sitting up, comfortable EYES: Pupils equal. Conjunctiva [place] l. HEENT: External appearance of nose and ears normal, oral cavity grossly normal. NECK: JVD not raised; masses not palpable. HEART: First and second heart sounds are normal; no edema. LUNGS: Respiratory rate normal; clear to auscultation. ABDOMEN: Soft, nontender, liver spleen not palpable, no masses palpable. PSYCH: Alert and oriented x3; mood and affect [place] l. MUSCULOSKELETAL:No Clubbing/cyanosis;muscles-grossly intact NEUROLOGICAL: Cranial nerves grossly intact; no facial asymmetry, power and sensation grossly intact. LYMPHATICS: No lymph nodes palpable in the axilla and neck INVESTIGATIONS, reviewed in the clinical context: 2D echocardiogram: EF 60 to 65%. Stress echocardiogram: Good exercise tolerance. Mild EKG changes. No acute changes. Chest x-ray film personally reviewed by me-some hyperinflation EKG tracing personally reviewed by me shows-some LVH. With some ST segment depression in anterolateral leads. From [facility] shows: White count 7.5 hemoglobin 12.1 platelets 265 sodium 138 potassium 3.5 phosphorus 1.8 troponin I less than 0.0122. ProBNP less than 20. EKG tracing personally reviewed by me-some ST segment depression in anterolateral leads. Patient negative for COVID 19, influenza type A B, RSV: Assessment and plan: -Anterior chest wall pain. Could be musculoskeletal. PE ruled out. Stress echocardiogram unremarkable Follow-up with cardiology outpatient -Abnormal CT chest. Seen by Dr. Yañez. Follow-up outpatient. -Depression Cymbalta 30 mg twice daily BuSpar 5 mg twice daily -GERD PPI -Bedbugs Patient was decontaminated -Hyperlipidemia Pravachol 20 mg a day -Moderate persistent asthma Symbicort 2 puff twice daily albuterol as needed Singulair. Disposition: Home Past Medical History Past Medical History: Asthma, COPD Additional Past Medical History / Comment(s): vertigo, sleep apnea Past Surgical History: Hernia Repair Past Psychological History: Depression Smoking Status: Former smoker Past Alcohol Use History: None Reported Past Drug Use History: None Reported Plan - Discharge Summary New Discharge Prescriptions: Continue Triamcinolone 0.1% Cream [Kenalog 0.1% Cream] 1 applic TOPICAL BID Loratadine [Claritin] 10 mg PO DAILY Budesonide/Formoterol Fumarate [Symbicort 160-4.5 Mcg Inhaler] 2 puff INHALATION RT-BID hydrOXYzine HCL [Atarax] 10 mg PO HS Pravastatin Sodium [Pravachol] 20 mg PO DAILY Meclizine [Antivert] 25 mg PO DAILY PRN PRN Reason: Vertigo Famotidine 20 mg PO DAILY busPIRone HCl [Buspar] 5 mg PO BID Omeprazole [PriLOSEC] 20 mg PO BID Montelukast [Singulair] 10 mg PO HS Nortriptyline [Pamelor] 50 mg PO HS DULoxetine HCL [Cymbalta] 30 mg PO BID Cyanocobalamin [Vitamin B-12] 500 mcg PO DAILY Aspirin EC [Ecotrin Low Dose] 81 mg PO DAILY Albuterol Inhaler [Ventolin Hfa Inhaler] 2 puff INHALATION RT-Q4H PRN PRN Reason: Shortness Of Breath Ergocalciferol [Vitamin D2 (1250 Mcg = 52453 Iu)] 1,250 mcg PO WEEKLY Discharge Medication List Albuterol Inhaler [Ventolin Hfa Inhaler] 2 puff INHALATION RT-Q4H PRN 09/26/23 [History] Aspirin EC [Ecotrin Low Dose] 81 mg PO DAILY 09/26/23 [History] Budesonide/Formoterol Fumarate [Symbicort 160-4.5 Mcg Inhaler] 2 puff INHALATION RT-BID 09/26/23 [History] Cyanocobalamin [Vitamin B-12] 500 mcg PO DAILY 09/26/23 [History] DULoxetine HCL [Cymbalta] 30 mg PO BID 09/26/23 [History] Ergocalciferol [Vitamin D2 (1250 Mcg = 69624 Iu)] 1,250 mcg PO WEEKLY 09/26/23 [History] Famotidine 20 mg PO DAILY 09/26/23 [History] Loratadine [Claritin] 10 mg PO DAILY 09/26/23 [History] Meclizine [Antivert] 25 mg PO DAILY PRN 09/26/23 [History] Montelukast [Singulair] 10 mg PO HS 09/26/23 [History] Nortriptyline [Pamelor] 50 mg PO HS 09/26/23 [History] Omeprazole [PriLOSEC] 20 mg PO BID 09/26/23 [History] Pravastatin Sodium [Pravachol] 20 mg PO DAILY 09/26/23 [History] Triamcinolone 0.1% Cream [Kenalog 0.1% Cream] 1 applic TOPICAL BID 09/26/23 [History] busPIRone HCl [Buspar] 5 mg PO BID 09/26/23 [History] hydrOXYzine HCL [Atarax] 10 mg PO HS 09/26/23 [History] Follow up Appointment(s)/Referral(s): Alvaro Laboy MD [STAFF PHYSICIAN] - 2 Weeks Christian Granado MD [STAFF PHYSICIAN] - 10 Days Terell Jeronimo MD [Primary Care Provider] - 1-2 days Patient Instructions/Handouts: Chest Pain (ED), Costochondritis (ED) Activity/Diet/Wound Care/Special Instructions: Patient to have bedbug cleaning at home. Discharge Disposition: HOME SELF-CARE
== END 2023-09-27 15:20 | disposition home or self-care (01) ==
LOC: EC 13:41 → 6NMEDSUR 14:12
PROVIDERS: ADMIT Hospitalist; ATTEND Hospitalist
DX: R07.89 Other chest pain (principal); J98.11 Atelectasis; R91.1 Solitary pulmonary nodule; J47.9 Bronchiectasis, uncomplicated; J45.40 Moderate persistent asthma, uncomplicated; R94.31 Abnormal electrocardiogram [ECG] [EKG]; J44.9 Chronic obstructive pulmonary disease, unspecified; K21.9 Gastro-esophageal reflux disease without esophagitis; E78.5 Hyperlipidemia, unspecified; D64.9 Anemia, unspecified; G47.30 Sleep apnea, unspecified; R00.0 Tachycardia, unspecified; R11.0 Nausea; F32.A Depression, unspecified; F41.9 Anxiety disorder, unspecified; Z77.22 Contact with and (suspected) exposure to environmental tobacco smoke (acute) (chronic); Z11.52 Encounter for screening for COVID-19; Z20.7 Contact with and (suspected) exposure to pediculosis, acariasis and other infestations; Z11.59 Encounter for screening for other viral diseases; Z79.82 Long term (current) use of aspirin; Z79.51 Long term (current) use of inhaled steroids; Z79.899 Other long term (current) drug therapy; Z88.1 Allergy status to other antibiotic agents; Z88.6 Allergy status to analgesic agent; Z88.8 Allergy status to other drugs, medicaments and biological substances; Z87.891 Personal history of nicotine dependence; Z98.890 Other specified postprocedural states; Z82.49 Family history of ischemic heart disease and other diseases of the circulatory system
CPT/HCPCS: 96372 ×2; 99285; 36415; 94640 ×2; 93005; 93306; 93351; 80061; 80053; 84443; 84484; 85025 ×2; 83036; 71045; 71275; G0378 ×2; J1644 ×2; Q9967; 96374